=== PATIENT | male | born 2000 | race Caucasian/White ===

== ENCOUNTER 2021-08-20 15:22 | Emergency (ER) | payer OTHER ==
[2021-08-20] MEDS ORDERED: Azithromycin 250 MG Tab ONE (17:00)
== END 2021-08-20 17:07 | disposition home or self-care (01) ==
LOC: LB.ED 15:22
DX: U07.1 COVID-19 (principal); J12.82 Pneumonia due to coronavirus disease 2019
CPT/HCPCS: 87635; 99283; A9270; 99284; U0002